=== PATIENT | female | born 1955 | race Caucasian/White ===

== ENCOUNTER 2016-04-06 09:35 | Emergency (ER) | payer MEDICAID ==
[~2016-04-06 09:35] MED LIST: /ESOM40CA OR; CIPR500T4 PO; HYDR25TA6 OR; NORV5TAB OR; QUESTRAN; SERT100T OR; TESS100C OR; ZOLO100T PO
--- NOTE | 2016-04-06 10:41 | REP ---
Clinical: Trauma. Technique: Internal rotation, external rotation, Y view of the left shoulder. Findings: There is a comminuted closed fracture involving the proximal humeral metaphysis. Acromioclavicular joint appears intact. Surrounding soft tissue swelling noted. Impression: Comminuted fracture the proximal humeral metaphysis. Signed by Tai Arita MD 04/06/2016 10:33 A
--- NOTE | 2016-04-06 11:29 | EDDOCDS ---
Nurse's Notes [facility] Name: Leatha Lopez Age: 61 yrs Sex: Female : 1955 Arrival Date: 04/06/2016 Time: 09:35 Bed I7 / 29 Private MD: NO PRIMARY PHYSICIAN, . Diagnosis: Nondisplaced comminuted fracture of shaft of humerus, left arm Presentation: 04/06 09:41 Presenting complaint: Patient states: pt reports falling when getting out of the tub ead four days ago, reports falling on left arm. pt reports limited rom in left arm. pt has left arm inside shirt. Adult Sepsis Screening: The patient does not have new or worsening altered mentation. Patient's respiratory rate is less than 22. Systolic blood pressure is greater than 100. Patient has a qSOFA score of 0- Negative Sepsis Screen. Suicide/Homicide risk assessment- the patient denies having any suicidal and/or homicidal ideations and does not present with any other emotional, behavioral or mental health complaints. Status: Patient is not a senior manager creative services or dependent. Transition of care: patient was not received from another setting of care. 09:41 Acuity: URIEL Level 4 ead 09:41 Method Of Arrival: Walkin/Carried/Asstd ead Triage Assessment: 09:43 General: Appears in no apparent distress, comfortable, Behavior is appropriate for age, ead cooperative. Pain: Location: left arm Pain currently is 9 out of 10 on a pain scale. HIV screening NA for this visit Offered previously. Neurological: No deficits noted. Respiratory: Airway is patent Respiratory effort is even, unlabored. Musculoskeletal: Reports pain in left arm. Historical: - Allergies: Keflex (tongue swelling); PENICILLINS (tongue swelling); - Home Meds: 1. none - PMHx: none; - PSHx: D & C; - Social history: Smoking status: Patient uses tobacco products, current every day smoker. No barriers to communication noted, The patient speaks fluent Lao, Speaks appropriately for age. - : The pt / caregiver states he / she is not on anticoagulants. Home medication list is obtained from the patient. - Exposure Risk Screening:: None identified. Screenin:05 Screening information is obtained from the patient. Fall risk: No risks identified. ilanak Assistance ADL's: requires no assistance with activities of daily living. Abuse/DV Screen: The patient / caregiver reports he/she is: not in a situation that causes fear, pain or injury. Nutritional screening: No deficits noted. Advance Directives: Currently, there is no health care proxy. There is no active DNR order. There is no living will. There is no Power of Unhairing Machine Operator. Advance directive information has not previously been placed in an [facility] medical record. home support is adequate. Assessment: 11:02 General: Appears skin warm and dry color satisfactory. Moist pink oral mucosa. jmk Indicates discomfort to left shoulder area. + ecchymosis, swelling noted to extremity from fingers to shoulder. pulse is intact. crepetis noted with palpation of upper arm. Ring has been removed and provided to patient. Ecchymosis noted about left breast area with application of sling. states relief of discomfort with application of slplint.. Vital Signs: 09:38 BP 166 / 96; Pulse 84; Resp 18 S; Temp 98.4(O); Pulse Ox 100% on R/A; Weight 65.23 kg gr2 (M); Height 5 ft. 7 in. (170.18 cm) (R); Pain 8/10; 11:19 BP 184 / 94; Pulse 81; Resp 18; Temp 98.0(O); Pulse Ox 99% on R/A; Pain 9/10; dem1 09:38 Body Mass Index 22.52 (65.23 kg, 170.18 cm) gr2 Vitals: 09:38 Log In Time: April 06, 2016 at 09:38. gr2 ED Course: 09:37 Patient visited by Lucy Cuevas. gr2 09:37 Patient moved to Waiting gr2 09:38 NO PRIMARY PHYSICIAN, . is Private Physician. gr2 09:39 Patient visited by Lucy Cuevas. gr2 09:39 Patient moved to Pre RCE gr2 09:42 Triage Initiated ead 10:05 Jd Peraza PA is PHCP. btw 10:05 Jose Pantoja MD is Attending Physician. btw 10:05 Patient visited by Jd Peraza PA. btw 10:05 Patient moved to Triage 3 ead 10:08 Denisse James RN is Primary Nurse. btw 10:08 Patient moved to I7 btw 10:59 Patient name changed from Leatha\S\L\S\Sayyeau\S\ to Leatha\S\Brian\S\Sayyeau. EDMS 10:59 Shoulder, Complete Returned. EDMS 11:00 [facility] Payment Agreement was scanned into [employer] and attached to record. lg 11:05 The patient / caregiver is instructed regarding the plan of care and ED course. jmk 11:09 Patient visited by Jeffrey Tobias,TATYANA. jmk 11:09 Silver Bee is Referral Physician. btw 11:20 Patient visited by Devan Basurto. [email or web address] Order Results: Radiology Order: Shoulder, Complete Test: Shoulder, Complete REASON FOR EXAMINATION: Trauma; Clinical: Trauma.; ; Technique: Internal rotation, external rotation, Y view of the left shoulder.; ; Findings:; There is a comminuted closed fracture involving the proximal humeral metaphysis.; Acromioclavicular joint appears intact. Surrounding soft tissue swelling noted.; ; Impression:; Comminuted fracture the proximal humeral metaphysis.; ; ; Signed by; Tai Arita MD 04/06/2016 10:33 A; Outcome: 11:09 Discharge ordered by Provider. btw 11:27 Discharge Assessment: Patient awake, alert and oriented x 3. No cognitive and/or k functional deficits noted. Patient verbalized understanding of disposition instructions. patient administered narcotics - no. The following High Risk Discharge criteria are identified: None. Discharged to home ambulatory. Condition: good. Discharge instructions given to patient, Instructed on discharge instructions, follow up and referral plans. medication usage, Demonstrated understanding of instructions, medications, Pt was receptive of discharge instructions/ teaching. Prescriptions given X 2. No special radiology studies were completed. Property :Personal belongings accompany Pt. 11:28 Patient left the ED. tiffanie Signatures: Dispatcher [employer] EDMS Jeffrey Tobias,RN RN Sarah Joel, Reg Reg lg Jd Peraza PA PA btw Devan aBsurto dem1 Lucy Cuevas gr2 Loren Milian RN RN ead MTDD
--- NOTE | 2016-04-06 11:29 | EDDOCDS ---
Physician Documentation [facility] Name: Leatha Lopez Age: 61 yrs Sex: Female : 1955 Arrival Date: 04/06/2016 Time: 09:35 Bed I7 / 29 Private MD: NO PRIMARY PHYSICIAN, . Disposition: 04/06/16 11:09 Discharged to Home/Self Care. Impression: Nondisplaced comminuted fracture of shaft of humerus, left arm. - Condition is Stable. - Discharge Instructions: Humerus Fracture, Treated with Immobilization. - Prescriptions for Robaxin 500 mg Oral Tablet - take 1 tablet by ORAL route every 6 hours As needed; 40 tablet. Tylenol- Codeine #3 300-30 mg Oral Tablet - take 2 tablets by ORAL route every 6 hours As needed MDD: 4 tabs; 8 tablet. - Medication Reconciliation, Local Pharmacy Hours form. - Follow up: Silver Bee; When: 1 - 2 days; Reason: Further diagnostic work-up, Recheck today's complaints, Continuance of care. - Problem is new. - Symptoms are unchanged. Historical: - Allergies: Keflex (tongue swelling); PENICILLINS (tongue swelling); - Home Meds: 1. none - PMHx: none; - PSHx: D & C; - Social history: Smoking status: Patient uses tobacco products, current every day smoker. No barriers to communication noted, The patient speaks fluent Pashto, Speaks appropriately for age. - : The pt / caregiver states he / she is not on anticoagulants. Home medication list is obtained from the patient. - Exposure Risk Screening:: None identified. Vital Signs: 04/06 09:38 BP 166 / 96; Pulse 84; Resp 18 S; Temp 98.4(O); Pulse Ox 100% on R/A; Weight 65.23 kg / gr2 143.81 lbs (M); Height 5 ft. 7 in. (170.18 cm) (R); Pain 8/10; 11:19 BP 184 / 94; Pulse 81; Resp 18; Temp 98.0(O); Pulse Ox 99% on R/A; Pain 9/10; dem1 09:38 Body Mass Index 22.52 (65.23 kg, 170.18 cm) gr2 MDM: 10:09 Shoulder, Complete Ordered. EDMS 10:33 Financial registration complete. lg 10:52 Sling ordered. btw 11:00 [facility] Payment Agreement was scanned into [employer] and attached to record. lg Signatures: Dispatcher [employer] EDMS Jeffrey Tobias,RN RN Sarah Joel, Reg Reg lg Jd Peraza PA PA btw Loren Milian,TATYANA suh The chart was reviewed and I authenticate all verbal orders and agree with the evaluation and treatment provided.Attachments: 11:00 [facility] Payment Agreement lg MTDD
--- NOTE | 2016-04-08 12:29 | EDDOCDS ---
Physician Documentation [facility] Name: Leatha Lopez Age: 61 yrs Sex: Female : 1955 Arrival Date: 04/06/2016 Time: 09:35 Bed I7 / 29 Private MD: NO PRIMARY PHYSICIAN, . Disposition: 04/06/16 11:09 Discharged to Home/Self Care. Impression: Nondisplaced comminuted fracture of shaft of humerus, left arm. - Condition is Stable. - Discharge Instructions: Humerus Fracture, Treated with Immobilization. - Prescriptions for Robaxin 500 mg Oral Tablet - take 1 tablet by ORAL route every 6 hours As needed; 40 tablet. Tylenol- Codeine #3 300-30 mg Oral Tablet - take 2 tablets by ORAL route every 6 hours As needed MDD: 4 tabs; 8 tablet. - Medication Reconciliation, Local Pharmacy Hours form. - Follow up: Silver Bee; When: 1 - 2 days; Reason: Further diagnostic work-up, Recheck today's complaints, Continuance of care. - Problem is new. - Symptoms are unchanged. Historical: - Allergies: Keflex (tongue swelling); PENICILLINS (tongue swelling); - Home Meds: 1. none - PMHx: none; - PSHx: D & C; - Social history: Smoking status: Patient uses tobacco products, current every day smoker. No barriers to communication noted, The patient speaks fluent Croatian, Speaks appropriately for age. - : The pt / caregiver states he / she is not on anticoagulants. Home medication list is obtained from the patient. - Exposure Risk Screening:: None identified. Vital Signs: 04/06 09:38 BP 166 / 96; Pulse 84; Resp 18 S; Temp 98.4(O); Pulse Ox 100% on R/A; Weight 65.23 kg / gr2 143.81 lbs (M); Height 5 ft. 7 in. (170.18 cm) (R); Pain 8/10; 11:19 BP 184 / 94; Pulse 81; Resp 18; Temp 98.0(O); Pulse Ox 99% on R/A; Pain 9/10; dem1 09:38 Body Mass Index 22.52 (65.23 kg, 170.18 cm) gr2 MDM: 10:09 Shoulder, Complete Ordered. EDMS 10:33 Financial registration complete. lg 10:52 Sling ordered. btw 11:00 [facility] Payment Agreement was scanned into [employer] and attached to record. lg 13:28 T-Sheet-- Draft Copy was scanned into [employer] and attached to record. gb Signatures: Dispatcher [employer] EDMS Jeffrey Tobias,TATYANA RN jmk Jennifer Alberto, Reg Reg gb Sarah Cortez, Reg Reg lg Jd Peraza PA PA btw Loren Milian,RN RN angeli The chart was reviewed and I authenticate all verbal orders and agree with the evaluation and treatment provided.Attachments: 11:00 [facility] Payment Agreement lg 13:28 T-Sheet-- Draft Copy gb Chart Complete MTDD
--- NOTE | 2016-04-08 12:29 | EDDOCDS ---
Nurse's Notes [facility] Name: Leatha Lopez Age: 61 yrs Sex: Female : 1955 Arrival Date: 04/06/2016 Time: 09:35 Bed I7 / 29 Private MD: NO PRIMARY PHYSICIAN, . Diagnosis: Nondisplaced comminuted fracture of shaft of humerus, left arm Presentation: 04/06 09:41 Presenting complaint: Patient states: pt reports falling when getting out of the tub ead four days ago, reports falling on left arm. pt reports limited rom in left arm. pt has left arm inside shirt. Adult Sepsis Screening: The patient does not have new or worsening altered mentation. Patient's respiratory rate is less than 22. Systolic blood pressure is greater than 100. Patient has a qSOFA score of 0- Negative Sepsis Screen. Suicide/Homicide risk assessment- the patient denies having any suicidal and/or homicidal ideations and does not present with any other emotional, behavioral or mental health complaints. Status: Patient is not a director of employer services or dependent. Transition of care: patient was not received from another setting of care. 09:41 Acuity: URIEL Level 4 ead 09:41 Method Of Arrival: Walkin/Carried/Asstd ead Triage Assessment: 09:43 General: Appears in no apparent distress, comfortable, Behavior is appropriate for age, ead cooperative. Pain: Location: left arm Pain currently is 9 out of 10 on a pain scale. HIV screening NA for this visit Offered previously. Neurological: No deficits noted. Respiratory: Airway is patent Respiratory effort is even, unlabored. Musculoskeletal: Reports pain in left arm. Historical: - Allergies: Keflex (tongue swelling); PENICILLINS (tongue swelling); - Home Meds: 1. none - PMHx: none; - PSHx: D & C; - Social history: Smoking status: Patient uses tobacco products, current every day smoker. No barriers to communication noted, The patient speaks fluent Croatian, Speaks appropriately for age. - : The pt / caregiver states he / she is not on anticoagulants. Home medication list is obtained from the patient. - Exposure Risk Screening:: None identified. Screenin:05 Screening information is obtained from the patient. Fall risk: No risks identified. ilanak Assistance ADL's: requires no assistance with activities of daily living. Abuse/DV Screen: The patient / caregiver reports he/she is: not in a situation that causes fear, pain or injury. Nutritional screening: No deficits noted. Advance Directives: Currently, there is no health care proxy. There is no active DNR order. There is no living will. There is no Power of Liquor Department Manager. Advance directive information has not previously been placed in an [facility] medical record. home support is adequate. Assessment: 11:02 General: Appears skin warm and dry color satisfactory. Moist pink oral mucosa. jmk Indicates discomfort to left shoulder area. + ecchymosis, swelling noted to extremity from fingers to shoulder. pulse is intact. crepetis noted with palpation of upper arm. Ring has been removed and provided to patient. Ecchymosis noted about left breast area with application of sling. states relief of discomfort with application of slplint.. Vital Signs: 09:38 BP 166 / 96; Pulse 84; Resp 18 S; Temp 98.4(O); Pulse Ox 100% on R/A; Weight 65.23 kg gr2 (M); Height 5 ft. 7 in. (170.18 cm) (R); Pain 8/10; 11:19 BP 184 / 94; Pulse 81; Resp 18; Temp 98.0(O); Pulse Ox 99% on R/A; Pain 9/10; dem1 09:38 Body Mass Index 22.52 (65.23 kg, 170.18 cm) gr2 Vitals: 09:38 Log In Time: April 06, 2016 at 09:38. gr2 ED Course: 09:37 Patient visited by Lucy Cuevas. gr2 09:37 Patient moved to Waiting gr2 09:38 NO PRIMARY PHYSICIAN, . is Private Physician. gr2 09:39 Patient visited by Lucy Cuevas. gr2 09:39 Patient moved to Pre RCE gr2 09:42 Triage Initiated ead 10:05 Jd Peraza PA is PHCP. btw 10:05 Jose Pantoja MD is Attending Physician. btw 10:05 Patient visited by Jd Peraza PA. btw 10:05 Patient moved to Triage 3 ead 10:08 Denisse James RN is Primary Nurse. btw 10:08 Patient moved to I7 btw 10:59 Patient name changed from Leatha\S\L\S\Sayyeau\S\ to Leatha\S\Brian\S\Sayyeau. EDMS 10:59 Shoulder, Complete Returned. EDMS 11:00 [facility] Payment Agreement was scanned into [employer] and attached to record. lg 11:05 The patient / caregiver is instructed regarding the plan of care and ED course. jmk 11:09 Patient visited by Jeffrey Tobias,TATYANA. k 11:09 Silver Bee is Referral Physician. btw 11:20 Patient visited by Devan Basurto. dem1 13:28 T-Sheet-- Draft Copy was scanned into [employer] and attached to record. gb Order Results: Radiology Order: Shoulder, Complete Test: Shoulder, Complete REASON FOR EXAMINATION: Trauma; Clinical: Trauma.; ; Technique: Internal rotation, external rotation, Y view of the left shoulder.; ; Findings:; There is a comminuted closed fracture involving the proximal humeral metaphysis.; Acromioclavicular joint appears intact. Surrounding soft tissue swelling noted.; ; Impression:; Comminuted fracture the proximal humeral metaphysis.; ; ; Signed by; Tai Arita MD 04/06/2016 10:33 A; Outcome: 11:09 Discharge ordered by Provider. btw 11:27 Discharge Assessment: Patient awake, alert and oriented x 3. No cognitive and/or k functional deficits noted. Patient verbalized understanding of disposition instructions. patient administered narcotics - no. The following High Risk Discharge criteria are identified: None. Discharged to home ambulatory. Condition: good. Discharge instructions given to patient, Instructed on discharge instructions, follow up and referral plans. medication usage, Demonstrated understanding of instructions, medications, Pt was receptive of discharge instructions/ teaching. Prescriptions given X 2. No special radiology studies were completed. Property :Personal belongings accompany Pt. 11:28 Patient left the ED. priya Signatures: Dispatcher [employer] EDMS Jeffrey Tobias,RN RN Jennifer Donis, Reg Reg gb Sarah Cortez, Reg Reg lg Jd Peraza PA PA btw Devan Basurto dem1 Lucy Cuevas gr2 Loren Milian RN RN ead Chart Complete MTDD
--- NOTE | 2016-04-08 12:29 | EDDOCDS ---
Physician Documentation [facility] Name: Leatha Lopez Age: 61 yrs Sex: Female : 1955 Arrival Date: 04/06/2016 Time: 09:35 Bed I7 / 29 Private MD: NO PRIMARY PHYSICIAN, . Disposition: 04/06/16 11:09 Discharged to Home/Self Care. Impression: Nondisplaced comminuted fracture of shaft of humerus, left arm. - Condition is Stable. - Discharge Instructions: Humerus Fracture, Treated with Immobilization. - Prescriptions for Robaxin 500 mg Oral Tablet - take 1 tablet by ORAL route every 6 hours As needed; 40 tablet. Tylenol- Codeine #3 300-30 mg Oral Tablet - take 2 tablets by ORAL route every 6 hours As needed MDD: 4 tabs; 8 tablet. - Medication Reconciliation, Local Pharmacy Hours form. - Follow up: Silver Bee; When: 1 - 2 days; Reason: Further diagnostic work-up, Recheck today's complaints, Continuance of care. - Problem is new. - Symptoms are unchanged. Historical: - Allergies: Keflex (tongue swelling); PENICILLINS (tongue swelling); - Home Meds: 1. none - PMHx: none; - PSHx: D & C; - Social history: Smoking status: Patient uses tobacco products, current every day smoker. No barriers to communication noted, The patient speaks fluent Georgian, Speaks appropriately for age. - : The pt / caregiver states he / she is not on anticoagulants. Home medication list is obtained from the patient. - Exposure Risk Screening:: None identified. Vital Signs: 04/06 09:38 BP 166 / 96; Pulse 84; Resp 18 S; Temp 98.4(O); Pulse Ox 100% on R/A; Weight 65.23 kg / gr2 143.81 lbs (M); Height 5 ft. 7 in. (170.18 cm) (R); Pain 8/10; 11:19 BP 184 / 94; Pulse 81; Resp 18; Temp 98.0(O); Pulse Ox 99% on R/A; Pain 9/10; dem1 09:38 Body Mass Index 22.52 (65.23 kg, 170.18 cm) gr2 MDM: 10:09 Shoulder, Complete Ordered. EDMS 10:33 Financial registration complete. lg 10:52 Sling ordered. btw 11:00 [facility] Payment Agreement was scanned into [employer] and attached to record. lg 13:28 T-Sheet-- Draft Copy was scanned into [employer] and attached to record. gb Signatures: Dispatcher [employer] EDMS Jeffrey Tobias,TATYANA RN jmk Jennifer Alberto, Reg Reg gb Sarah Cortez, Reg Reg lg Jd Peraza PA PA btw Loren Milian,RN RN angeli The chart was reviewed and I authenticate all verbal orders and agree with the evaluation and treatment provided.Attachments: 11:00 [facility] Payment Agreement lg 13:28 T-Sheet-- Draft Copy gb Chart Complete MTDD
== END 2016-04-06 11:28 | disposition home or self-care (01) ==
LOC: M ED 09:35
DX: S42.202A Unspecified fracture of upper end of left humerus, initial encounter for closed fracture (principal); W00.9XXA Unspecified fall due to ice and snow, initial encounter; Y92.89 Other specified places as the place of occurrence of the external cause; Y93.89 Activity, other specified; Y99.8 Other external cause status; F17.200 Nicotine dependence, unspecified, uncomplicated; Z88.0 Allergy status to penicillin; Z88.1 Allergy status to other antibiotic agents

== ENCOUNTER 2016-04-21 08:30 | Outpatient (RCR) | payer MEDICAID | END 2016-04-28 | LOC: M PT 08:30 | PROVIDERS: ATTEND Orthopaedic Surgery | DX: Z51.89 Encounter for other specified aftercare (principal); S42.202A Unspecified fracture of upper end of left humerus, initial encounter for closed fracture; X58.XXXA Exposure to other specified factors, initial encounter; Y93.9 Activity, unspecified; Y92.9 Unspecified place or not applicable; Y99.8 Other external cause status ==

== ENCOUNTER → 2019-02-02 | Outpatient (REF) | payer MEDICARE, MEDICAID ==
[~2019-02-02] MED LIST changes: -/ESOM40CA OR; +NEXI1CAP3 OR
[2019-02-02 17:22] LABS: ALBUMIN 3.6 GM/DL (3.2-5.2); ALT/SGPT 18 U/L (12-78); BILIRUBIN,TOTAL 1.2 MG/DL (0.2-1.0); BLOOD UREA NITROGEN 13 MG/DL (7-18); CALCIUM LEVEL 8.9 MG/DL (8.8-10.2); CARBON DIOXIDE LEVEL 30 MEQ/L (21-32); CHLORIDE LEVEL 105 MEQ/L (98-107); CREATININE FOR GFR 0.83 MG/DL (0.55-1.30); GLOMERULAR FILTRATION RATE > 60.0 (>45); GLUCOSE, FASTING 85 MG/DL (70-100); POTASSIUM SERUM 3.6 MEQ/L (3.5-5.1); SODIUM LEVEL 141 MEQ/L (136-145); TOTAL PROTEIN 6.9 GM/DL (6.4-8.2)
== END ==
LOC: M LABDRAW1 15:47
PROVIDERS: ATTEND Physician Assistant
DX: M47.894 Other spondylosis, thoracic region (principal)

== ENCOUNTER 2019-11-20 11:01 | Emergency (ER) | payer MEDICARE, MEDICAID ==
[2019-11-20 11:10] VITALS: BP 131/79
[2019-11-20] MEDS ORDERED: ACET-683 PO (11:16)
--- NOTE | 2019-11-20 12:30 | REPVR ---
PROCEDURE INFORMATION: Exam: XR Right Humerus Exam date and time: 11/20/2019 12:16 PM Age: 64 years old Clinical indication: Pain and injury or trauma; Fall; Initial encounter; Swelling (edema); Arm, upper; Right; Upper arm TECHNIQUE: Imaging protocol: XR Right humerus Views: Internal/external rotation AP views of the right humerus are submitted. COMPARISON: No relevant prior studies available. FINDINGS: Bones/joints: Acute comminuted proximal humeral diaphyseal/metadiaphyseal fracture, 16.7 mm of lateral displacement of the distal segment, approximately 7.9 mm of lateral impaction/overriding, mild posterior angulation of the distal fracture fragment. Chronic healed proximal humeral neck fracture deformity. Healed distal clavicular fracture deformity. Soft tissues: No acute abnormality identified. IMPRESSION: Acute proximal humeral fracture. Electronically signed by: Lamin Dupree On 11/20/2019 12:30:57 PM
--- NOTE | 2019-11-20 12:32 | REPVR ---
PROCEDURE INFORMATION: Exam: XR Right Elbow Exam date and time: 11/20/2019 12:16 PM Age: 64 years old Clinical indication: Pain and injury or trauma; Fall; Initial encounter; Swelling (edema); Elbow; Right; Injury details: Fell in shower TECHNIQUE: Imaging protocol: XR Right elbow. Views: Frontal, lateral, and oblique views. COMPARISON: No relevant prior studies available. FINDINGS: Bones/joints: Moderate elbow joint effusion. Subtle contour deformity at the anterior radial head-neck junction. Soft tissues: Lateral soft tissue swelling. IMPRESSION: 1. Moderate elbow joint effusion. 2. Subtle contour deformity at the anterior radial head-neck junction consistent with indeterminate age impaction fracture. Clinical correlation with the patient's specific symptomatology/physical examination is recommended. Electronically signed by: Lamin Dupree On 11/20/2019 12:32:50 PM
[2019-11-20] MEDS ORDERED: NORC1TAB7 PO (13:06)
[2019-11-20] MEDS ORDERED: ANEXSIA, NORCO 7.5MG/325MG TABLET(HYDROCODONE/APAP) PO ONE (13:30)
--- NOTE | 2019-11-20 13:39 | REPVR ---
PROCEDURE INFORMATION: Exam: CT Right Upper Extremity Without Contrast, Shoulder Exam date and time: 11/20/2019 1:02 PM Age: 64 years old Clinical indication: Injury or trauma; Fall; Initial encounter; Fracture, traumatic injury; Closed fracture; Humerus; Right TECHNIQUE: Imaging protocol: CT of the Right upper extremity without contrast was performed. Exam focused on the shoulder. Radiation optimization: All CT scans at this facility use at least one of these dose optimization techniques: automated exposure control; mA and/or kV adjustment per patient size (includes targeted exams where dose is matched to clinical indication); or iterative reconstruction. COMPARISON: CR Shoulder, complete 04/06/2016 10:25 AM FINDINGS: Bones/joints: Comminuted right proximal humeral diaphyseal/metadiaphyseal fracture, 16.7 mm lateral displacement and mild fracture site overriding/impaction of the dominant distal fragment, lateral fracture apex angulation. Healed right proximal humeral neck and greater tuberosity base fracture deformity (series 205, image 32). Soft tissues: Posterior predominant right upper arm soft tissue swelling. Benign right breast macrocalcifications. Vasculature: LAD, LCx and RCA calcified coronary atherosclerosis. Distal right axillary artery atherosclerotic calcifications. IMPRESSION: 1. Acute proximal right humeral fracture. 2. Coronary atherosclerosis. Electronically signed by: Lamin Dupree On 11/20/2019 13:39:15 PM
== END 2019-11-20 13:49 | disposition home or self-care (01) ==
LOC: EDBD 11:01 → M ED 11:01
DX: S42.201A Unspecified fracture of upper end of right humerus, initial encounter for closed fracture (principal); W18.2XXA Fall in (into) shower or empty bathtub, initial encounter; Y92.002 Bathroom of unspecified non-institutional (private) residence as the place of occurrence of the external cause; M25.421 Effusion, right elbow; I25.10 Atherosclerotic heart disease of native coronary artery without angina pectoris; I10 Essential (primary) hypertension; J44.9 Chronic obstructive pulmonary disease, unspecified; F33.9 Major depressive disorder, recurrent, unspecified; F41.9 Anxiety disorder, unspecified; Z88.1 Allergy status to other antibiotic agents; Z79.899 Other long term (current) drug therapy